=== PATIENT | female | born 1975 | race American Indian/Alaskan Native ===

== ENCOUNTER 2017-03-05 21:58 | Emergency (ER) | payer SELFPAY ==
[2017-03-05 22:32] VITALS: BP 155/93
[2017-03-05 23:10] LABS: Basophils % (Auto) 0.4 % (0.0-1.8); Eosinophils % (Auto) 2.7 % (0.0-4.3); Hematocrit 38.4 % (30.3-42.9); Hemoglobin 11.9 gm/dl (10.1-14.3); Mean Corpuscular HGB Conc 31 % (30-34); Mean Corpuscular Volume 81 fl (79-97); Platelet Count 229 K/mm3 (140-440); Red Blood Count 4.77 M/mm3 (3.65-5.03); Red Cell Distribution Width 14.2 % (13.2-15.2); White Blood Count 11.3 K/mm3 (4.5-11.0)
[2017-03-05 23:12] LABS: Anion Gap 20 mmol/L; BUN/Creatinine Ratio 23.33; Blood Urea Nitrogen 14 mg/dL (7-17); Calcium 8.8 mg/dL (8.4-10.2); Carbon Dioxide 21 mmol/L (22-30); Glucose 88 mg/dL (65-100); Potassium 4.2 mmol/L (3.6-5.0); Sodium 138 mmol/L (137-145)
[2017-03-05 23:14] LABS: Mean Corpuscular Hemoglobin 25 pg (28-32)
--- NOTE | 2017-03-10 16:54 | ED Elopement Review ---
ED Pt Elopement review - Results review Lab results: Laboratory Tests 03/05/17 03/05/17 22:37 22:37 WBC 11.3 H RBC 4.77 Hgb 11.9 Hct 38.4 MCV 81 MCH 25 L MCHC 31 RDW 14.2 Plt Count 229 Lymph % (Auto) 30.7 Vernon % (Auto) 6.2 Eos % (Auto) 2.7 Baso % (Auto) 0.4 Lymph # 3.5 Vernon # 0.7 Eos # 0.3 Baso # 0.0 Seg Neutrophils % 60.0 Seg Neutrophils # 6.8 Sodium 138 Potassium 4.2 Chloride 101.0 Carbon Dioxide 21 L Anion Gap 20 BUN 14 Creatinine 0.6 L Estimated GFR > 60 BUN/Creatinine Ratio 23.33 Glucose 88 Calcium 8.8 Troponin T < 0.010 - Call Back decision Pt Call Back Decision: No action required
== END 2017-03-06 00:58 | disposition left against medical advice (07) ==
LOC: ED 21:58
DX: R07.9 Chest pain, unspecified (principal); R06.02 Shortness of breath; Z53.21 Procedure and treatment not carried out due to patient leaving prior to being seen by health care provider
CPT/HCPCS: 36415; 80048; 84484; 85025; 93005; 93010